=== PATIENT | male | born 1995 | race Caucasian/White ===

== ENCOUNTER 2017-10-27 01:16 | Inpatient (IN) | payer MEDICAID ==
[~2017-10-27] VITALS: Ht 167.6 cm; Wt 62.4 kg
[2017-10-27] MEDS ORDERED: QUET200T PO (01:52)
[2017-10-27] MEDS ORDERED: SERT100T12 PO (01:52)
[2017-10-27] MEDS ORDERED: OXCA300T PO (01:52)
[2017-10-27 03:09] LABS: BASOPHILS % (AUTO) 0.8 % (0.0-2.0); HEMOGLOBIN 14.6 g/dL (13.5-17.5); LYMPHOCYTES # (AUTO) 2.6 K/uL (1.0-4.8); LYMPHOCYTES % (AUTO) 30.9 % (22.0-44.0); MEAN CORPUSCULAR HEMOGLOBIN 31.1 pg (26.0-34.0); MEAN CORPUSCULAR VOLUME 92 fL (80-100); MONOCYTES # (AUTO) 0.7 K/uL (0.1-1.0); MONOCYTES % (AUTO) 8.4 % (2.0-9.0); NEUTROPHILS # (AUTO) 4.9 K/uL (1.8-7.7); NEUTROPHILS % (AUTO) 58.9 % (40.0-70.0); PLATELET COUNT (AUTO) 293 K/uL (150-450); RED CELL DISTRIBUTION WIDTH 14.5 % (11.5-14.5)
[2017-10-27 03:17] LABS: ANION GAP 12 mmol/L (8-16); CALCIUM, TOTAL 8.4 mg/dL (8.8-10.5); CARBON DIOXIDE 27 mmol/L (22-29); CHLORIDE 104 mmol/L (98-107); CREATININE 0.94 mg/dL (0.60-1.30); GLOMERULAR FILTR. RATE CALC > 60 mL/min (>60); GLUCOSE,RANDOM 92 mg/dL (70-110); POTASSIUM 3.8 mmol/L (3.5-5.1); SODIUM SERUM 143 mmol/L (136-145); UREA NITROGEN, BLOOD 19 mg/dL (7-18)
[2017-10-27 03:23] LABS: ALANINE AMINOTRANSFERASE 26 U/L (12-78); ALBUMIN 4.8 g/dL (3.4-5.0); ALKALINE PHOSPHATASE 72 U/L (46-116); ASPARTATE AMINOTRANSFERASE 25 U/L (15-37); BILIRUBIN,TOTAL 0.3 mg/dL (0.1-1.0); TOTAL PROTEIN, SERUM 7.3 g/dL (6.4-8.2)
[2017-10-27] MEDS ORDERED: LORazepam 2 MG TABLET PO ONE (03:30)
[2017-10-27] MEDS ORDERED: DiphenhydrAMINE HCL 25 MG CAPSULE PO ONE (03:30)
[2017-10-27] MEDS ORDERED: HALOPERIDOL 5 MG TABLET PO ONE (03:30)
[2017-10-27] MEDS ORDERED: ZOLPIDEM TARTRATE 10 MG TABLET PO PRN (04:15)
[2017-10-27] MEDS: LORazepam 2 MG TABLET PO PRN ×2 (09:50→17:34)
[2017-10-27 16:15] VITALS: BP 137/75
[2017-10-27 16:21] VITALS: BP 137/75
[2017-10-27 17:15] VITALS: BP 131/62
[2017-10-27 18:15] VITALS: BP 122/63
[2017-10-27 19:15] VITALS: BP 128/68
[2017-10-27] MEDS ORDERED: ACETAMINOPHEN 325 MG TABLET PO PRN (22:15)
[2017-10-27] MEDS ORDERED: MAG HYDROX/AL HYDROX/SIMETH ES 30 ML SUSPENSION UDCUP PO PRN (22:15)
[2017-10-27] MEDS ORDERED: CloNIDine HCL 0.1 MG TABLET PO PRN (22:15)
[2017-10-27] MEDS ORDERED: IBUPROFEN 600 MG TABLET PO PRN (22:15)
[2017-10-27] MEDS ORDERED: ONDANSETRON HCL 4 MG TABLET PO PRN (22:15)
[2017-10-27] MEDS ORDERED: ALBUTEROL SULFATE HFA 90 MCG/PUFF 8 GM INHALER IH PRN (22:15)
[2017-10-27] MEDS ORDERED: LOPERAMIDE HCL 2 MG CAPSULE PO PRN (22:15)
[2017-10-27] MEDS ORDERED: BENZOCAINE/MENTHOL LOZENGE MM PRN (22:15)
[2017-10-27] MEDS ORDERED: MAGNESIUM HYDROXIDE SUSPENSION 30 ML UDCUP PO PRN (22:15)
[2017-10-27] MEDS ORDERED: PETROLATUM,WHITE 71 GM JELLY TP PRN (22:15)
[2017-10-27] MEDS ORDERED: BACITRACIN 28.4 GM OINTMENT TP PRN (22:15)
[2017-10-28] MEDS: LORazepam 2 MG TABLET PO PRN ×3 (05:44→17:36)
[2017-10-28 06:19] VITALS: BP 122/67
[2017-10-28 06:20] VITALS: BP 122/67
[2017-10-28 08:06] VITALS: BP 138/89
[2017-10-28] MEDS: OMEPRAZOLE 20 MG CAPSULE PO SCH (08:55)
[2017-10-28] MEDS: DOCUSATE SODIUM 100 MG CAPSULE PO SCH (08:55)
[2017-10-28] MEDS: HALOPERIDOL 5 MG TABLET PO PRN ×2 (08:56→17:36)
[2017-10-28] MEDS: BACITRACIN 28.4 GM OINTMENT TP SCH ×2 (08:56→16:55)
[2017-10-28 11:15] VITALS: BP 113/67
[2017-10-28 15:15] VITALS: BP 120/66
[2017-10-28 16:00] VITALS: BP 138/69
[2017-10-28] MEDS: QUEtiapine FUMARATE 300 MG TABLET PO SCH (21:09)
[2017-10-29 06:18] VITALS: BP 121/66
[2017-10-29 08:00] VITALS: BP 123/67
[2017-10-29 08:30] VITALS: BP 123/67
[2017-10-29] MEDS: DOCUSATE SODIUM 100 MG CAPSULE PO SCH (10:03)
[2017-10-29] MEDS: HALOPERIDOL 5 MG TABLET PO PRN ×2 (10:03→16:48)
[2017-10-29] MEDS: LORazepam 2 MG TABLET PO PRN ×2 (10:03→16:48)
[2017-10-29] MEDS: SERTRALINE HCL 100 MG TABLET PO SCH (10:03)
[2017-10-29] MEDS: OMEPRAZOLE 20 MG CAPSULE PO SCH (10:03)
[2017-10-29] MEDS: BACITRACIN 28.4 GM OINTMENT TP SCH ×2 (10:03→16:49)
[2017-10-29 16:00] VITALS: BP 119/77
[2017-10-29] MEDS: NICOTINE 21 MG/24 HOUR PATCH TD SCH (17:19)
[2017-10-29] MEDS: QUEtiapine FUMARATE 300 MG TABLET PO SCH (20:39)
[2017-10-30 05:42] VITALS: BP 135/80
[2017-10-30] MEDS: HALOPERIDOL 5 MG TABLET PO PRN (05:47)
[2017-10-30] MEDS: LORazepam 2 MG TABLET PO PRN ×2 (05:47→10:33)
[2017-10-30 08:02] VITALS: BP 134/73
[2017-10-30] MEDS: OMEPRAZOLE 20 MG CAPSULE PO SCH (08:54)
[2017-10-30] MEDS: SERTRALINE HCL 100 MG TABLET PO SCH (08:54)
[2017-10-30] MEDS: DOCUSATE SODIUM 100 MG CAPSULE PO SCH (08:54)
[2017-10-30] MEDS: NICOTINE 21 MG/24 HOUR PATCH TD SCH (08:55)
[2017-10-30] MEDS: BACITRACIN 28.4 GM OINTMENT TP SCH (08:55)
[2017-10-30] MEDS ORDERED: QUET300T2 PO (09:45)
== END 2017-10-30 12:45 | disposition home or self-care (01) | DRG 751 ==
LOC: EMS 01:19 → B3A 14:35
PROVIDERS: ADMIT Psychiatry & Neurology Psychiatry; ATTEND Psychiatry & Neurology Psychiatry
DX: F33.2 Major depressive disorder, recurrent severe without psychotic features (principal); R45.851 Suicidal ideations; E83.51 Hypocalcemia; F41.9 Anxiety disorder, unspecified; Z88.8 Allergy status to other drugs, medicaments and biological substances; F17.210 Nicotine dependence, cigarettes, uncomplicated; F12.90 Cannabis use, unspecified, uncomplicated; Z81.8 Family history of other mental and behavioral disorders; F60.3 Borderline personality disorder; Z63.9 Problem related to primary support group, unspecified; G47.00 Insomnia, unspecified; Z72.89 Other problems related to lifestyle; Z71.41 Alcohol abuse counseling and surveillance of alcoholic; Z71.6 Tobacco abuse counseling; Z71.51 Drug abuse counseling and surveillance of drug abuser; Z91.5 Personal history of self-harm
CPT/HCPCS: 82306; 99285; G0480